=== PATIENT | male | born 2005 | race Caucasian/White ===

== ENCOUNTER 2023-03-12 12:32 | Emergency (ER) | payer BC, SELFPAY ==
[2023-03-12 12:48] VITALS: BP 126/74; PULSE 93; RESP 18; TEMP 37.3; O2SAT 98; BMI 24.4
[2023-03-12 13:24] LABS: Appearance Urine Slightly Cloudy (Clear); Bilirubin Urine Negative (Negative); Blood Urine 3+ (Negative); Color Urine Orange (Yellow); Glucose Urine Negative (Negative); Ketones Urine Trace (Negative); Leukocyte Esterase Urine 2+ (Negative); Nitrite Urine Negative (Negative); Protein Urine 1+ (Negative); Specific Gravity Urine 1.015 (1.000-1.030); Urobilinogen Urine 0.2 (0.2-1.0)
--- NOTE | 2023-03-12 13:31 | ED.GENADULT ---
HPI - General Adult General Chief complaint: Urogenital Problems, Male Stated complaint: Possible UTI Time Seen by Provider: 03/12/23 12:42 Source: patient Mode of arrival: ambulatory Limitations: no limitations History of Present Illness HPI narrative: 17-year-old male coming in today complaining of urinary frequency, dysuria and hematuria. Frequency and dysuria started yesterday, hematuria started today. He states that he does notice a little bit of blood in his urine. He denies any penile discharge, abdominal pain, fevers or chills. No nausea or vomiting. Patient does have 1 sexual partner that is new that he has had for the last few weeks. He denies inserting anything into the penis. Takes no medications and is generally healthy. Related Data Previous Rx's Medication Instructions Recorded doxycycline hyclate 100 mg capsule 100 mg PO BID 7 days #14 caps 03/12/23 Allergies Allergy/AdvReac Type Severity Reaction Status Date / Time amoxicillin Allergy Verified 03/12/23 12:50 Review of Systems Status of ROS: Reports: 6 or more systems reviewed and unremarkable except as noted in History and below Exam Narrative: Exam Narrative: Well-nourished well-developed patient in no acute distress. Alert and oriented. Answers questions appropriately. Mood and affect are appropriate. Thoughts are goal oriented and rational. No tangential or magical thinking noted. Patient speaks in full sentences without needing to catch their breath. HEENT: Normocephalic atraumatic. Pupils are equally round reactive to light. Extraocular muscles are intact. Conjunctivae are moist without any icterus noted. Moist mucous membranes. Cardiovascular: Heart is regular rate and rhythm S1 and S2 are present without any murmurs. Lungs: Clear to auscultation bilaterally no wheezes rhonchi or rales are appreciated. Patient takes deep breaths without any discomfort. Abdomen: Soft and nontender nondistended with normal bowel sounds. No guarding or rebound. Skin: Well perfused without any obvious rashes. Const: Vital Signs, click to edit/add: Vital Signs - 24 hr 03/12/23 12:48 Temperature 99.1 F Pulse Rate [Right Pulse Oximeter] 93 Respiratory Rate 18 Blood Pressure [Ri ght Upper Arm] 126/74 Pulse Oximetry 98 Oxygen Delivery Me thod Room Air Course Course Hospital Course: UA grossly positive for signs of infection. Chlamydia/gonorrhea testing negative. Vital Signs Vital signs: Initial Vital Signs Temperature 99.1 F 03/12/23 12:48 Temperature Source Temporal Artery Scan 03/12/23 12:48 Pulse Rate 93 03/12/23 12:48 Respiratory Rate 18 03/12/23 12:48 Blood Pressure 126/74 03/12/23 12:48 Blood Pressure Mean 91 03/12/23 12:48 Blood Pressure Position Sitting 03/12/23 12:48 Pulse Oximetry 98 03/12/23 12:48 Oxygen Delivery Method Room Air 03/12/23 12:48 Vital Signs Temperature 99.1 F 03/12/23 12:48 Pulse Rate 93 03/12/23 12:48 Respiratory Rate 18 03/12/23 12:48 Blood Pressure 126/74 03/12/23 12:48 Pulse Oximetry 98 03/12/23 12:48 Oxygen Delivery Method Room Air 03/12/23 12:48 Temperature 99.1 F 03/12/23 12:48 Pulse Rate 93 03/12/23 12:48 Respiratory Rate 18 03/12/23 12:48 Blood Pressure 126/74 03/12/23 12:48 Pulse Oximetry 98 03/12/23 12:48 Oxygen Delivery Method Room Air 03/12/23 12:48 Medical Decision Making MDM Narrative Medical decision making narrative: 17-year-old male with UTI. Will treat with 1 dose of IM Rocephin and send home with doxycycline. Lab Data Lab results reviewed: Yes I reviewed the patient's lab results Labs: Lab Results 03/12/23 03/12/23 Range/Units 13:14 13:16 Urine Color [place] A (Yellow) Urine Appearance Slightly Cloudy A (Clear) Urine pH 7.0 (5.0-8.5) Ur Specific [place] 1.015 (1.000-1.030) Urine Protein 1+ A (Negative) Urine Glucose (UA) Negative (Negative) Urine Ketones Trace A (Negative) Urine Blood 3+ A (Negative) Urine Nitrite Negative (Negative) Urine Bilirubin Negative (Negative) Urine Urobilinogen 0.2 (0.2-1.0) Ur Leukocyte Esterase 2+ A (Negative) Urine RBC 2-5 A (0-2) Urine WBC >100 A (0-5) Ur Squamous Epith Cells Few (None-Few) Urine Bacteria Few A (None) C.trachomatis Ampl DNA NOT DETECTED (No Detected) N.gonorrhoeae Ampl DNA NOT DETECTED (No Detected) Discharge Plan Discharge Clinical Impression: Urinary tract infection Patient Disposition: Home, Self-Care Condition: Stable Additional Instructions: Take all your antibiotics as prescribed. If your symptoms do not get better or they return after treatment, follow-up with your primary care provider. Recommend having your partner tested for gonorrhea and chlamydia, although your tests were negative today, these tests are not 100% sensitive. Prescriptions: New doxycycline hyclate 100 mg capsule 100 mg PO BID 7 Days Qty: 14 0RF Follow Up/Referrals: Provider,Not a Local [Primary Care Provider] - Stand Alone Forms: [facility] Info Instructions
[2023-03-12 13:42] LABS: Bacteria Urine Few; Squamous Epithelial Cell Urine Few (None-Few); WBC Urine >100 (0-5)
[2023-03-12 14:53] LABS: Chlamydia DNA Amplified* NOT DETECTED (No Detected); GC DNA Amplified* NOT DETECTED (No Detected)
[2023-03-12] MEDS: cefTRIAXone 500 MG VIAL IM (15:15)
== END 2023-03-12 15:12 | disposition home or self-care (01) ==
PROVIDERS: Emergency Provider Family Medicine
DX: N39.0 Urinary tract infection, site not specified (principal)
CPT/HCPCS: 81001; 87086; 87186; 87491; 87591; 96372; 99283; 99284; J0696